=== PATIENT | male | born 1965 | race Caucasian/White ===

== ENCOUNTER 2020-05-21 08:56 | Emergency (ER) | payer OTHER ==
[~2020-05-21] VITALS: Ht 175.3 cm; Wt 82.1 kg
[~2020-05-21 08:56] MED LIST: FENOFIBRATE160 MG PO; GLUCOPHAGE XR500 MG PO; HYDROCODON-ACE1 EAC7 PO; HYDROCODONE-APA1 TA1 PO; LANTUS100 UNIT/M SUBQ; LIPITOR 20 MG T20 M1 PO; NORCO 10-325 T1 EAC1 PO
[2020-05-21] MEDS ORDERED: AMOXICILLIN 50500 MG PO (09:18)
[2020-05-21] MEDS ORDERED: TRAMADOL 50 MG50 MG PO (09:18)
[2020-05-21 09:26] VITALS: BP 147/85
== END 2020-05-21 09:26 | disposition home or self-care (01) ==
LOC: M.ERS 08:56
DX: K02.9 Dental caries, unspecified (principal); F17.210 Nicotine dependence, cigarettes, uncomplicated; I10 Essential (primary) hypertension; E11.9 Type 2 diabetes mellitus without complications; K21.9 Gastro-esophageal reflux disease without esophagitis; Z90.49 Acquired absence of other specified parts of digestive tract; Z95.5 Presence of coronary angioplasty implant and graft

== ENCOUNTER 2021-01-02 10:05 | Inpatient (IN) | payer OTHER ==
[~2021-01-02] VITALS: Ht 175.3 cm; Wt 83.9 kg
[~2021-01-02 10:05] MED LIST changes: +AMOXICILLIN 50500 MG PO; +TRAMADOL 50 MG50 MG PO
[2021-01-02 10:19] VITALS: BP 137/86
[2021-01-02] MEDS ORDERED: LIPITOR 40 MG T40 M1 PO (10:21)
[2021-01-02] MEDS ORDERED: ASA81BEC PO (10:21)
[2021-01-02] MEDS ORDERED: TOPROL XL25 MG PO (10:21)
[2021-01-02] MEDS ORDERED: NORVASC5 MG PO (10:21)
[2021-01-02] MEDS ORDERED: NEURONTIN100 MG PO (10:22)
[2021-01-02] MEDS ORDERED: LISINOPRIL-HCT1 EAC2 PO (10:22)
[2021-01-02] MEDS ORDERED: HUMALOG100 UNIT/1 SUBQ (10:22)
[2021-01-02 10:32] LABS: URINE BILIRUBIN NEGATIVE (Negative); URINE BLOOD NEGATIVE (Negative); URINE CLARITY CLEAR; URINE COLOR YELLOW; URINE GLUCOSE-RANDOM 1+ (Negative); URINE KETONES NEGATIVE (Negative); URINE LEUKOCYTES-REFLEX NEGATIVE (Negative); URINE NITRITE-REFLEX NEGATIVE (Negative); URINE PROTEIN 1+ (Negative); URINE SPECIFIC GRAVITY >= 1.030 (1.005-1.030); URINE UROBILINOGEN 0.2 E.U./dl (0.2-1.0)
[2021-01-02 10:48] LABS: BACTERIA-REFLEX 1-9 Few /HPF (None Seen); CASTS None Seen /LPF (None Seen); SQUAMOUS 0-3 Few /LPF (0-3); URINE RBC 0-2 Rare /HPF (0-2); URINE WBC-REFLEX 0-5 Rare /HPF (0-5)
[2021-01-02 10:49] LABS: CRYSTALS None Seen /LPF (None Seen)
[2021-01-02 11:24] LABS: HEMATOCRIT 45.3 % (42.0-52.0); HEMOGLOBIN 15.4 gm/dL (14.0-18.0); NUCLEATED RBCS 0 /100WBC; RBC 4.29 mil/uL (4.50-6.00); WBC 5.9 thou/uL (4.0-11.0)
[2021-01-02 11:26] LABS: ABSOLUTE MONOCYTES 0.6 thou/uL (0.0-1.2); ABSOLUTE NEUTROPHILS 3.3 thou/uL (1.6-8.1); BASOPHILS 0.5 %; EOSINOPHILS 0.3 %; MCH 35.9 pg (26.0-34.0); MCV 105.5 fL (80.0-100.0); MONOCYTES 10.8 %; MPV 7.6 fl. (7.2-11.1); PLATELET COUNT* 220 thou/uL (150-400); POLYS 55.4 %; RDW-CV 12.9 % (10.5-14.5)
--- NOTE | 2021-01-02 11:34 | EKG ---
[place] [address] ELECTROCARDIOGRAM REPORT Name: BEATRIZ WEI Room: [facility]#: [id number] Admission: 01/02/21 Attend Phys: Discharge: Date of : 69 Date of Service: 01/02/21 1053 Report #: [id number] THIS REPORT FOR: //name// [facility] ED Test Date: 2021-01-02 Test Time: 10:53:13 Pat Name: BEATRIZ WEI Department: Room: Gender: Multilith Operator: KATHY : 1965 Requested By: Salina Devine Order Number: [id number] MD: Germán Mayfield Measurements Intervals [place] Rate: 91 P: 70 VT: 138 QRS: 51 QRSD: 98 T: 47 QT: 348 QTc: 429 Interpretive Statements Sinus rhythm Abnormal inferior Q waves ST elev, probable normal early repol pattern Compared to ECG 02/23/2015 19:08:47 Sinus tachycardia no longer present Electronically Signed On 01-02-2021 11:33:51 CDT by Germán Mayfield [email or web address] <ELECTRONICALLY SIGNED> By: Germán Mayfield MD, [facility] 01/02/21 1133 1053 1053 Germán Mayfield MD, [facility] /EPI
[2021-01-02 11:35] LABS: CALCIUM 9.4 mg/dL (8.5-10.1); CREATININE 1.2 mg/dL (0.6-1.3); POTASSIUM 5.5 mmol/L (3.5-5.1)
[2021-01-02 11:39] LABS: ALBUMIN 4.7 g/dL (3.4-5.0); TOTAL BILIRUBIN 0.2 mg/dL (<0.1-1.0); TOTAL PROTEIN 8.8 g/dL (6.4-8.2)
[2021-01-02 16:33] VITALS: BP 97/48
[2021-01-02 18:56] LABS: CALCIUM 8.5 mg/dL (8.5-10.1); CREATININE 1.1 mg/dL (0.6-1.3); POTASSIUM 5.5 mmol/L (3.5-5.1)
[2021-01-02 19:01] LABS: ALBUMIN 4.1 g/dL (3.4-5.0); TOTAL BILIRUBIN 0.3 mg/dL (<0.1-1.0); TOTAL PROTEIN 7.6 g/dL (6.4-8.2)
--- NOTE | 2021-01-02 19:30 | NUR ---
PATIENT ASKED FOR IV AND MONITOR TO BE TAKEN OFF BECAUSE HE WANTED TO LEAVE. SIGNED AMA. DR. RAYO INFORMED.
== END 2021-01-02 19:12 | disposition left against medical advice (07) | DRG 179 ==
LOC: M.ERS 10:05 → M.TBA-ER 13:59
PROVIDERS: Internal Medicine; Nurse Practitioner Family; ADMIT Internal Medicine; ATTEND Internal Medicine
DX: U07.1 COVID-19 (principal); K21.9 Gastro-esophageal reflux disease without esophagitis; I25.2 Old myocardial infarction; E11.65 Type 2 diabetes mellitus with hyperglycemia; I25.10 Atherosclerotic heart disease of native coronary artery without angina pectoris; Z20.822 Contact with and (suspected) exposure to COVID-19; Z53.29 Procedure and treatment not carried out because of patient's decision for other reasons; Z90.49 Acquired absence of other specified parts of digestive tract; Z79.899 Other long term (current) drug therapy